=== PATIENT | female | born 1990 | race Caucasian/White ===

== ENCOUNTER 2019-12-19 10:48 | Emergency (ER) | payer BC ==
[~2019-12-19] VITALS: Ht 165.1 cm; Wt 61.2 kg
[2019-12-19 11:46] LABS: ABSOLUTE NEUTROPHILS 3.5 thou/uL (1.4-8.2); BASOPHILS 0.6 % (0.0-2.0); HEMATOCRIT 38.4 % (37.0-47.0); HEMOGLOBIN 13.3 gm/dL (12.0-15.0); MCH 32.2 pg (26.0-34.0); MCHC 34.6 g/dL (28.0-37.0); MCV 92.9 fL (80.0-100.0); MONOCYTES 7.6 % (1.0-8.0); PLATELET COUNT 262 thou/uL (150-400); POLYS 59.8 % (36.0-66.0); RBC 4.13 mil/uL (4.20-5.00); RDW 12.8 % (10.5-14.5); WBC 5.9 thou/uL (4.0-11.0)
[2019-12-19 11:50] LABS: CALCIUM 8.4 mg/dL (8.5-10.1); CREATININE 0.8 mg/dL (0.6-1.0); POTASSIUM 3.4 mmol/L (3.5-5.1)
[2019-12-19 11:55] LABS: URINE BILIRUBIN NEGATIVE (Negative); URINE BLOOD 3+ (Negative); URINE CLARITY CLOUDY; URINE GLUCOSE-RANDOM* NEGATIVE (Negative); URINE KETONES NEGATIVE (Negative); URINE LEUKOCYTES-REFLEX TRACE (Negative); URINE NITRITE-REFLEX NEGATIVE (Negative); URINE PROTEIN (DIPSTICK) 1+ (Negative); URINE SPECIFIC GRAVITY <= 1.005 (1.005-1.035); URINE UROBILINOGEN 0.2 E.U./dl (0.2-1.0)
--- NOTE | 2019-12-19 11:55 | EKG ---
[facility] [place] [address] ELECTROCARDIOGRAM REPORT Name: MIGUEL A WELLS Room #: [facility].#: [id number] Admission: 12/19/19 Attend Phys: Discharge: Date of : 89 Report #: [id number] THIS REPORT FOR: cc: KITA - Tere family physician/PCP KITA - Tere family physician/PCP Cisco Harden MD [facility] ~ THIS REPORT FOR: //name// [facility] ED Test Date: 2019-12-19 Test Time: 11:49:56 Pat Name: MIGUEL A WELLS Department: Room: Gender: F Gluing Machine Operator Electronic: : 1990 Requested By: Kayla Dowell Order Number: [id number] MD: Cisco Harden Measurements Intervals Felt Rate: 75 P: 37 OR: 166 QRS: 78 QRSD: 90 T: 18 QT: 402 QTc: 449 Interpretive Statements Sinus rhythm RSR' in V1 or V2, probably normal variant Borderline T wave abnormalities No previous ECG available for comparison Electronically Signed On 12-19-2019 11:54:54 CDT by Cisco Harden [email or web address] <ELECTRONICALLY SIGNED> By: Cisco Harden MD, [facility] 12/19/19 1154 [id number] [id number] Cisco Harden MD, [facility] /EPI
[2019-12-19 11:57] LABS: URINE COLOR PINK
[2019-12-19 12:04] LABS: BACTERIA-REFLEX 1-9 Few /HPF (None Seen); CASTS None Seen /LPF (None Seen); SQUAMOUS 4-10 Moderate /LPF (0-3); URINE RBC >20 Many /HPF (0-2); URINE WBC-REFLEX 0-5 Rare /HPF (0-5)
[2019-12-19 12:05] LABS: CRYSTALS None Seen /LPF (None Seen)
[2019-12-19 13:50] VITALS: BP 109/64
== END 2019-12-19 13:52 | disposition home or self-care (01) ==
LOC: ER 10:48
PROVIDERS: Physician Assistant
DX: R55 Syncope and collapse (principal); E86.0 Dehydration; K21.9 Gastro-esophageal reflux disease without esophagitis